=== PATIENT | female | born 1945 | race Caucasian/White ===

== ENCOUNTER 2016-10-07 19:58 | Observation (INO) | payer OTHER ==
[~2016-10-07] VITALS: Ht 152.4 cm; Wt 77.5 kg
[~2016-10-07 19:58] MED LIST: ACIPHEX20 MG PO; AMPICILLIN TRI500 MG PO; ASPIRIN E.C.81 M1 PO; ASPIRIN81 M1; BACLOFEN10 MG PO; BACTRIM,SEPT1 TABLET PO; Bactrim,Septra DS 80 PO; CALCIUM500 M4 PO; COPAXONE20 MG/KIT SC; COPAXONE20 MG/KIT SQ; COPAXONE40 MG/1 ML SC; DITROPAN XL10 MG PO; ESTRADIOL2 MG; Estrace PO; FENOFIBRATE48 MG PO; GLIPIZIDE5 MG PO; GLUCOPHAGE1000 MG PO; GLUCOPHAGE500 MG PO; HYDROXYZINE HCL25 M1; KEFLEX500 MG PO; LIPITOR20 MG PO; LISINOPRIL10 MG PO; METFORMIN HCL500 MG PO; MULTI-VITAMIN1 EAC3 PO; MULTIVITAMIN1 EAC1; OMEPRAZOLE40 M1 PO; RESTASIS 01 DROP/0.4 BOTH EYES; THERAGRAN1 TABLET PO; TRIAMTERENE-HC1 EAC1 PO; URIBEL CAPSULE1 EACH PO; ZESTRIL,PRINIVI10 MG; ZOFRAN4 MG PO; ZYRTEC10 M2 PO
[2016-10-07 20:31] LABS: EOSINOPHIL (%) 8.4 % (0-5); EOSINOPHIL COUNT 0.7 K/uL (0-0.3); HEMATOCRIT 38.4 % (36.0-46.0); IMMATURE GRANULOCYTE (%) 0.4 % (0.0-0.7); INSTRUMENT ABS NEUTROPHIL CT 4.3 K/uL; LYMPHOCYTE COUNT 2.6 K/uL (1.0-2.8); MCH 26.2 PG (29.0-34.0); MCHC 31.8 G/DL (30.0-36.0); MCV 82.6 FL (83-99); MEAN PLAT.VOLUME 10.9 uM^3 (9.5-12.4); MONOCYTE (%) 6.6 % (3-12); MONOCYTE COUNT 0.5 K/uL (0-0.8); NEUTROPHIL (%) 52.5 % (45-76); NEUTROPHIL COUNT 4.3 K/uL (1.8-6.4); PLATELET COUNT 337 K/uL (156-360); RBC DIS.WIDTH-CV 14.6 % (11.8-14.6); RBC DIS.WIDTH-SD 42.8 % (39-53); RED BLOOD COUNT 4.65 M/uL (3.80-5.20); WHITE BLOOD COUNT 8.2 K/uL (4.1-10.2)
[2016-10-07 20:46] LABS: INTER. NORMALIZED RATIO 1.1; PROTHROMBIN TIME 11.1 (9.2-11.2); PTT 27.7 (25-32)
[2016-10-07 20:52] LABS: POINT-OF-CARE METER ID UU14100415
[2016-10-07 20:53] LABS: TROP-I INTERPRETATION NEGATIVE; TROPONIN-I < 0.01 ng/mL (0.0-0.30)
[2016-10-07 21:05] LABS: ADD MIUA? YES; BILIRUBIN NEGATIVE; BLOOD NEGATIVE; COLOR STRAW ((YELLOW)); GLUCOSE (STRIP) NEGATIVE; KETONES NEGATIVE; LEUKOCYTES LARGE; NITRITE NEGATIVE; PROTEIN (STRIP) NEGATIVE; SPECIFIC GRAVITY 1.006 (1.000-1.030); UROBILINOGEN 0.2 MG/DL (0.2-1.0)
[2016-10-07 21:06] LABS: AMPHETAMINE NEGATIVE (500 ng/mL); BARBITURATES NEGATIVE (200 ng/mL); BENZODIAZEPINES NEGATIVE (150 ng/mL); COCAINE NEGATIVE (150 ng/mL); INTERNAL CONTROLS VALID? YES; METHADONE NEGATIVE (200 ng/mL); METHAMPHETAMINE NEGATIVE (500 ng/mL); OPIATES (MORPHINE) NEGATIVE (100 ng/mL); OXYCODONE NEGATIVE (100 ng/mL); PHENCYCLIDINE NEGATIVE (25 ng/mL); PROPOXYPHENE NEGATIVE (300 ng/mL); THC CANNABINOIDS NEGATIVE (50 ng/mL); TRICYCLIC ANTIDEPRESSANTS NEGATIVE (300 ng/mL)
[2016-10-07 21:18] LABS: BACTERIA NONE SEEN /HPF; EPITHELIAL CELLS RARE /HPF; MUCUS NONE SEEN /LPF; RED BLOOD CELLS 0-5 /HPF (0-5); UCUL ADDED? NO
[2016-10-07] MEDS ORDERED: LIPITOR40 MG PO (23:54)
[2016-10-07] MEDS ORDERED: LOW DOSE ASPIRI81 M1 PO (23:55)
[2016-10-07] MEDS ORDERED: NEURONTIN300 MG PO (23:56)
[2016-10-07] MEDS ORDERED: GLIPIZIDE5 MG PO (23:57)
[2016-10-07] MEDS ORDERED: GLUCOTROL5 MG PO (23:58)
[2016-10-07] MEDS ORDERED: CLOPIDOGREL75 MG PO (23:58)
[2016-10-07] MEDS ORDERED: CYANOCOBALAM1000 MCG PO (23:59)
[2016-10-08] MEDS ORDERED: PIOGLITAZONE HC15 MG PO (00:01)
[2016-10-08] MEDS ORDERED: ELAVIL10 MG PO (00:01)
[2016-10-08] MEDS ORDERED: CULTURELLE1 EAC1 PO (00:02)
[2016-10-08] MEDS ORDERED: MGO400 MG PO (00:02)
[2016-10-08] MEDS ORDERED: MYRBETRIQ50 MG PO (00:03)
[2016-10-08 01:58] VITALS: BP 142/63
[2016-10-08 03:39] LABS: AMYLASE 55 IU/L (1-118); CHLORIDE 103 mEq/L (99-109); POTASSIUM 3.9 mEq/L (3.7-5.4); SODIUM 138 mEq/L (136-147)
[2016-10-08 03:41] LABS: GLUCOSE 175 mg/dL (70-99)
[2016-10-08 03:42] LABS: ANION GAP 14 MEQ/L (2-14)
[2016-10-08 03:44] LABS: SERUM ETHYL ALCOHOL < 10 mg/dL
[2016-10-08 03:45] LABS: GFR ESTIMATE (CALCULATED) 58 mL/min/
[2016-10-08 03:46] LABS: UREA NITROGEN (BUN) 24 mg/dL (9-23)
[2016-10-08 03:48] LABS: LIPASE 67 U/L (1.0-51.0)
[2016-10-08 04:53] VITALS: BP 120/55
[2016-10-08 07:14] VITALS: BP 141/64
[2016-10-08 08:43] LABS: POINT-OF-CARE METER ID UU14162513
[2016-10-08 11:02] VITALS: BP 130/61
[2016-10-08] MEDS ORDERED: CIPROFLOXACIN250 MG PO (11:15)
[2016-10-08] MEDS ORDERED: AMITRIPTYLINE H25 MG PO (11:17)
== END 2016-10-08 12:42 | disposition home or self-care (01) ==
LOC: EME 19:58 → EDOF 10-08 00:24 → 5WEST 10-08 01:05
PROVIDERS: Emergency Medicine; Student in an Organized Health Care Education/Training Program
DX: F07.81 Postconcussional syndrome (principal); G44.319 Acute post-traumatic headache, not intractable; G35 Multiple sclerosis; R20.0 Anesthesia of skin; R47.81 Slurred speech; R51 Headache; H53.8 Other visual disturbances; E11.9 Type 2 diabetes mellitus without complications; I10 Essential (primary) hypertension; K21.9 Gastro-esophageal reflux disease without esophagitis; E78.5 Hyperlipidemia, unspecified
CPT/HCPCS: 70450; 80048; 81003; 82150; 82948; 83690; 84484; 85025; 85610; 85730; 86900; 86901; 87086; 93005; 99281; 99285; G0378; G0480; G8978 GP CH; G8979 GP CH; G8980 GP CH; G8987 GO CH; G8988 GO CH; G8989 GO CH; J3010